=== PATIENT | male | born 1955 | race Caucasian/White ===

== ENCOUNTER → 2017-12-14 | Outpatient (CLI) | payer BC ==
[~2017-12-14] VITALS: Ht 188 cm; Wt 101.2 kg
[~2017-12-14] MED LIST: APIX5TAB PO; ASCO-262 PO; ASP325T PO; ATOR20TA66 PO; ATR20T PO; CALC-913 PO; CATHETER FLUSH 10 ML SYR IV SCH; CINN500C2 PO; DILT120C53 PO; DILT240C54 PO; DOFE500C PO; LEVO50TA6 PO; LISI20TA2 PO; LISI40TA PO; LVT.05T PO; MELO7.5T PO; METO-272 PO; METO50TA15 PO; MULT-35 PO; OMEP20CA12 PO; OMEP20CA6 PO; OMG1KC PO; SAW450CA7 PO; VITA1CAP PO; VITIAMS
[2017-12-14 09:22] VITALS: BP 134/99
[2017-12-14 09:30] VITALS: BP 198/98
--- NOTE | 2017-12-18 13:12 | STRESS TEST ---
DATE OF SERVICE: 12/14/2017 RESTING AND POST EXERCISE TECHNETIUM-99M TETROFOSMIN SPECT CT IMAGING ORDERING PHYSICIAN: Karolyn Felix APRN OTHER PHYSICIAN: Dr. Miranda, Dr. Mai. CLINICAL DIAGNOSIS: Chest discomfort, paroxysmal atrial fibrillation. Baseline images were carried out after injection of 10.49 mCi of technetium-99m Tetrofosmin. Subsequently, exercise was carried out on a treadmill. Baseline rhythm was atrial fibrillation/flutter. Heart rate was controlled at baseline. With exercise, heart rate ryley. Blood pressure response was normal to somewhat hypertensive. Test was stopped on account of shortness of breath and fatigue. After he had attained more than 85% of maximum predicted heart rate, 29.5 mCi of technetium-99m Tetrofosmin were injected and the exercise was continued for another minute. Isolated premature ventricular contractions were seen in the recovery phase. There did not appear to be significant ST segment depression. The patient attained 101% of maximum predicted heart rate and 7.7 METS of workload. Review of images at rest and following stress does not indicate any significant perfusion defects consistent with significant myocardial ischemia or infarction. Gated images show normal global left ventricular systolic function with normal regional wall motion. Left ventricular ejection fraction is calculated to be 56%. Left ventricular end-diastolic volume 84 mL. TID is absent (0.94). He exercised for a total of 6 minutes and 20 seconds in the Zac protocol. CONCLUSIONS: 1. No evidence of significant myocardial ischemia or infarction on this study. 2. Normal global left ventricular systolic function and normal regional wall motion and a calculated ejection fraction of 56%. 3. Atrial flutter/fibrillation throughout the study. 4. Low exercise capacity. Job ID: [id number] DocumentID: [id number] Dictated Date: 12/18/2017 10:59:50 Cleaning Attendant Date: 12/18/2017 13:11:42 Dictated By: KLARISSA MAI MD, MA, FACP, FACC, MTDD
== END ==
LOC: CARD 06:59
PROVIDERS: ATTEND Nurse Practitioner Family
DX: R07.89 Other chest pain (principal); I48.0 Paroxysmal atrial fibrillation; I10 Essential (primary) hypertension
CPT/HCPCS: 78452; 93017

== ENCOUNTER 2018-01-08 08:00 | Day surgery (SDC) | payer BC ==
[~2018-01-08] VITALS: Ht 188 cm; Wt 101.2 kg
[2018-01-08] VITALS (10 sets, daily range): BP systolic 111–131; BP diastolic 79–99
[~2018-01-08 08:00] MED LIST changes: -CATHETER FLUSH 10 ML SYR IV SCH
[2018-01-08] MEDS ORDERED: LIDOCAINE 1% INJ 20 ML 20 ML VIAL ONE (08:44)
[2018-01-08] MEDS ORDERED: HEParin (CATH LAB) 2,000 ML IV ONE (08:45)
[2018-01-08] MEDS ORDERED: NS IV 1000 ML 1,000 ML ONE (08:45)
[2018-01-08] MEDS ORDERED: NS IV 1000 ML 1,000 ML IV SCH ×2 (08:55→13:13)
[2018-01-08 09:16] LABS: HEMOGLOBIN 14.9 G/DL (13.3-17.7); MEAN PLATELET VOLUME 10.7 FL (7.4-10.4); RED BLOOD COUNT 5.28 10^6/uL (4.35-5.85); RED CELL DISTRIBUTION WIDTH 14.8 % (10.0-14.5)
[2018-01-08 09:28] LABS: INR 1.1 (0.8-1.4); PROTHROMBIN TIME PATIENT 14.2 SEC (12.2-14.7)
[2018-01-08 09:36] LABS: ALANINE AMINOTRANSFERASE 45 U/L (0-55); ALBUMIN 4.5 GM/DL (3.2-4.5); ALKALINE PHOSPHATASE 88 U/L (40-136); BILIRUBIN,TOTAL 0.6 MG/DL (0.1-1.0); BUN/CREATININE RATIO 15; CALCIUM 9.6 MG/DL (8.5-10.1); CARBON DIOXIDE 22 MMOL/L (21-32); CHLORIDE 110 MMOL/L (98-107); CHOLESTEROL 132 MG/DL (< 200); CREATININE SERUM 0.89 MG/DL (0.60-1.30); GFR ESTIMATED > 60; GLUCOSE 102 MG/DL (70-105); HDL CHOLESTEROL 44 MG/DL (40-60); POTASSIUM 4.1 MMOL/L (3.6-5.0); SODIUM 141 MMOL/L (135-145); TOTAL PROTEIN 7.1 GM/DL (6.4-8.2); TRIGLYCERIDES 68 MG/DL (<150); VLDL CHOLESTEROL 14 MG/DL (5-40)
[2018-01-08] MEDS ORDERED: LEVO50TA6 PO (09:36)
[2018-01-08] MEDS ORDERED: DILT120C53 PO (09:37)
[2018-01-08] MEDS ORDERED: ADAL40KI SQ (09:39)
[2018-01-08] MEDS ORDERED: CINN500C2 PO (09:40)
[2018-01-08] MEDS ORDERED: fentaNYL INJECTION 100 MCG/2 ML AMP ONE (10:28)
[2018-01-08] MEDS ORDERED: MIDAZOLAM 5 MG/5 ML (VERSED) VIAL ONE (10:28)
[2018-01-08] MEDS ORDERED: diphenhydrAMINE 50 MG/ML INJ (BENADRYL) ONE (10:28)
--- NOTE | 2018-01-08 11:43 | CARDIAC CATHETERIZATION ---
DATE OF SERVICE: 01/08/2018 CARDIAC CATHETERIZATON REPORT The patient is a 62-year-old man with chest discomfort. He has multiple coronary artery disease risk factors and chronic atrial fibrillation. Although, he recently had a myocardial perfusion imaging study that did not indicate significant ischemia, he has lately been describing symptoms that are suggestive of crescendo angina. He notes chest discomfort with small amount of exertion that resolved within a few minutes of rest and are frequent, present on a daily basis. Because of this, cardiac catheterization was carried out to evaluate for obstructive coronary artery disease as the basis of his symptoms of crescendo angina. DESCRIPTION OF PROCEDURE: He was brought to the cardiac catheterization laboratory in a fasting state. Right groin was prepared and draped in usual sterile fashion. Lidocaine 1% with local anesthesia. Modified Seldinger technique was used to advance a 5-Malawian sheath in the right femoral artery. Angiography of the right femoral artery was carried out through the sheath. A 5-Malawian JL4 catheter for left coronary angiography. A 5-Malawian JR4 catheter for right coronary angiography, 5-Malawian pigtail catheter was left heart catheterization, left ventricular angiography. At the end of the procedure, Mynx was used to achieve hemostasis following sheath removal. He tolerated the procedure well. HEMODYNAMICS: Left ventricular end-diastolic pressure following coronary angiography was 13 mmHg. There was no significant pressure gradient on pullback across the aortic valve. Ascending aortic pressure was 138/88 with a mean 107 mmHg. LEFT VENTRICULAR ANGIOGRAPHY: Left ventricular angiography was carried out in the right anterior oblique projection. Global left ventricular systolic function is normal. Left ventricular ejection fraction estimated to be 55% to 60%. There does not appear to be significant mitral regurgitation. CORONARY ANGIOGRAPHY: Left main coronary artery, left anterior descending artery, left circumflex artery, right coronary artery do not exhibit angiographically significant disease. Right coronary artery is dominant. CONCLUSIONS: 1. No angiographically significant coronary artery disease. 2. Normal global left ventricular systolic function with ejection fraction of 55% to 60%. 3. Left ventricular end-diastolic pressure at the top limit of normal. 4. No significant mitral regurgitation. DISCUSSION AND RECOMMENDATIONS: Based on results of the study, chest discomfort does not appear to be of coronary origin. Continuing risk factor modification is advised. Outpatient followup is advised. Job ID: [id number] DocumentID: [id number] Dictated Date: 01/08/2018 11:12:55 Theater Technician Date: 01/08/2018 11:43:02 Dictated By: KLARISSA CARRILLO MD, MA, FACP, FACC,
[2018-01-08] MEDS ORDERED: PATIENT MAY USE OWN MEDS, ALL PO SCH (13:15)
--- OUTSIDE RECORDS SUMMARY | 2018-01-17 18:06 | XMS REPORT | Encounter Summary ---
Author Author [facility] Organization [facility] Address Unknown Phone Unavailable Care Team Providers Care Clinic Clerk Name Role Phone Hasmukh Alvarez MD 100 Mariela Mcgrath RN Unavailable Unavailable Jalen Phillip MD PCP Reason for Referral * Test Status Reason Specialty Diagnoses / Referred By Referred To Procedures Contact Contact No Auth Needed Cardiology Diagnoses Dendi, Cmp Card Echo/Pv PAF (paroxysmal MD Hasmukh [address] fibrillation) [place], [place] ([facility]) [place] [address] [address] [place], [place] Phone: hypertension [phone] Mixed Phone: hyperlipidemia [phone] P Fax: [place] [phone] 2-D + DOPPLER ECHOCARDIOGRAM NH ECHO TTHRC R-T 2D W/WOM-MODE COMPL SPEC&COLR D * Test Status Reason Specialty Diagnoses / Referred By Referred To Procedures Contact Contact No Auth Needed Cardiology Diagnoses Dendi, Cmp Card Echo/Pv PAF (paroxysmal MD Hasmukh [address] fibrillation) [place], [place] ([facility]) [place] [address] [address] [place], [place] Phone: hypertension [phone] Mixed Phone: hyperlipidemia [phone] P Fax: [place] [phone] 2-D + DOPPLER ECHOCARDIOGRAM NH ECHO TTHRC R-T 2D W/WOM-MODE COMPL SPEC&COLR D Reason for Visit * Test Status Reason Specialty Diagnoses / Referred By Referred To Procedures Contact Contact No Auth Needed Cardiology Diagnoses Dendi, Cmp Card Echo/Pv PAF (paroxysmal MD Hasmukh [id number] fibrillation) [address] [place], [place] ([facility]) [place] [address] [address] [address] [place], [place] Phone: hypertension [phone] Mixed Phone: hyperlipidemia [phone] P Fax: rocedures [phone] 2-D + DOPPLER ECHOCARDIOGRAM NH ECHO TTHRC R-T 2D W/WOM-MODE COMPL SPEC&COLR D Encounter Details Date Type Department Care Team Description 10/24/2017 [facility] Cardiology Hasmukh Alvarez MD Encounter [id number] [facility] [address] [place] [address] [place] [address] [place], [place] [id number] Social History Tobacco Use Types Packs/Day Years Used Date Never Smoker Smokeless Tobacco: Former Snuff, Chew Quit: User 07/07/2008 Alcohol Use Drinks/Week oz/Week Comments No none since 01/2015 Sex Assigned at Date Recorded Not on file as of this encounter Last Filed Vital Signs Vital Sign Reading Time Taken Blood Pressure 137/86 10/24/2017 2:25 PM CDT Pulse - - Temperature - - Respiratory Rate - - Oxygen Saturation - - Inhaled Oxygen - - Concentration Weight 98.7 kg (217 lb 9.6 oz) 10/24/2017 2:25 PM CDT Height 188 cm (6' 2") 10/24/2017 2:25 PM CDT Body Mass Index 27.94 10/24/2017 2:25 PM CDT in this encounter Medications at Time of Discharge Medication Sig. Disp. Refills Start Date End Date adalimumab(+) (HUMIRA) 40 Inject 40 mg under the mg/0.8 mL injection skin every 14 days. apixaban (ELIQUIS) 5 mg Take 5 mg by mouth twice tab tablet daily. ascorbic acid (VITAMIN C) Take 2,000 mg by mouth 500 mg tablet daily. atorvastatin (LIPITOR) 20 Take 20 mg by mouth at mg tablet bedtime daily. CALCIUM CARBONATE/VITAMIN Take 1 Tab by mouth D3 (CALCIUM 600 + D PO) Daily. CARTIA XT 120 mg capsule TAKE ONE CAPSULE BY MOUTH 30 capsule 7 2017 ONCE DAILY Cinnamon Bark (CINNAMON) Take 1 Cap by mouth Twice 500 mg Cap Daily. levothyroxine (SYNTHROID) Take 50 mcg by mouth at 50 mcg tablet bedtime daily. lisinopril (PRINIVIL, Take 40 mg by mouth at ZESTRIL) 40 mg tablet bedtime daily. multivitamin (THERAGRAN) Take 1 Tab by mouth per tablet Daily. Hampton-3 Fatty Take 1 Cap by mouth Acids-Vitamin E (FISH Daily. OIL) 1,[address],+, Take 20 mg by mouth (PRILOSEC) 20 mg capsule Daily. SAW PALMETTO PO Take 1 Cap by mouth Daily. vitamins, B complex tab Take 1 Tab by mouth daily. metoprolol tartrate TAKE ONE TABLET BY MOUTH 60 Tab 11 11/02/2016 (LOPRESSOR) 50 mg tablet TWICE A DAY as of this encounter Progress Notes * Hasmukh Alvarez MD - 10/28/2017 10:06 PM CDT Normal result. Please let the patient know the good news if not already done. Copy to Primary research animal attendant Dr Mai. in this encounter Plan of Treatment Not on fileas of this encounter Results * 2-D + DOPPLER ECHOCARDIOGRAM (10/24/2017 2:25 PM) Component Value Ref Range IVS 1.03 0.6 - 1.0 cm LVIDD 4.74 4.2 - 5.8 cm LVIDS 2.86 2.5 - 4.0 cm PW 1.00 0.6 - 1.0 cm TDI e' 0.13 m/s Right Ventricular Mid 3.50 1.9 - 3.5 cm Diameter LA size 4.83 3.0 - 4.0 cm LA volume 53.74 18 - 58 mL Right Atrial Area 13.61 18 - 32 cm2 Right Atrial Major 4.92 2.1 - 2.7 cm Dimension AV peak velocity 1.05 m/s MV Peak A Lion 0.68 m/s MV Peak E Loin PW 1.11 m/s Right Ventricular Basal 4.29 2.5 - 4.1 cm Diameter Right Heart Systolic 2.03 >1.7 cm Mmode TAPSE Sinus 3.37 3.1 - 3.7 cm BSA 2.27 m2 FS 39.66 28 - 44 % EF 67.42 % Left Atrium Index 23.67 16 - 34 E/A ratio 1.63 E/E' ratio 8.54 Referring Provider Jalen Phillip LV mass 170.16 96 - 200 g RWT 0.42 <=0.42 Cardiology Ultrasound Siemens [id number] Machine Left Ventricle Mass Index 74.96 50 - 102 g/m2 TV rest pulmonary artery n/a mmHg pressure Right Heart Systolic TDI 0.296 m/s S' ECHO EF 60 % Specimen Performing Laboratory OTHER OUTSIDE LAB Narrative Rest Echo: Overall left ventricular systolic function is normal. EF~ 60% No regional wall motion abnormalities identified Valves appear structurally normal without signficant stenosis or regurgitation No significant pericardial effusion Normal chamber dimensions Normal LV wall thickness Normal diastolic function Normal aortic root dimensions Normal global strain pattern in this encounter Visit Diagnoses Diagnosis PAF (paroxysmal atrial fibrillation) (HCC) Atrial fibrillation Essential hypertension Unspecified essential hypertension Mixed hyperlipidemia
--- OUTSIDE RECORDS SUMMARY | 2018-01-17 18:06 | XMS REPORT | Encounter Summary ---
Author Author [facility] Organization [facility] Address Unknown Phone Unavailable Care Team Providers Care Records Supervisor Name Role Phone Hasmukh Alvarez MD 100 Mariela Mcgrath RN Unavailable Unavailable Jalen Phillip MD PCP Reason for Visit * Reason Comments Medication Refill metoprolol tartrate Encounter Details Date Type Department Care Team Description 11/26/2017 Refill [facility] Cardiology Hasmukh Alvarez MD Medication Refill [address] (metoprolol tartrate) [place] [address] [place] [address] [place], [place] [id number] Social History Tobacco Use Types Packs/Day Years Used Date Never Smoker Smokeless Tobacco: Former Snuff, Chew Quit: User 07/07/2008 Alcohol Use Drinks/Week oz/Week Comments No none since 01/2015 Sex Assigned at Date Recorded Not on file as of this encounter Plan of Treatment Not on fileas of this encounter Visit Diagnoses Not on filein this encounter
--- OUTSIDE RECORDS SUMMARY | 2018-01-17 18:06 | XMS REPORT ---
Author SIMA Vivar [facility] e[employer] Address Unknown Phone Unavailable Care Team Providers Care Hunter Trapper Name Role Phone SIMA SUAREZ CP Unavailable Allergies, Adverse Reactions, Alerts Substance Reaction Event Type N.K.D.A. Info Not Available Non Drug Allergy Problems Problem Type Condition Code Onset Dates Condition Status Problem Hypothyroidism, unspecified type E03.9 Active Problem Gastroesophageal reflux disease without esophagitis K21.9 Active Problem Atrial fibrillation, unspecified type I48.91 Active Assessment Routine adult health maintenance Z00.00 Active Assessment Hypothyroidism, unspecified type E03.9 Active Medications Medication Code System Code Instructions Start Date End Date Status Dosage Metoprolol Succinate ER [facility] [address]-23 50 MG Orally Once a day 1 tablet Atorvastatin Calcium [facility] [address]-91 20 MG Orally Once a day 1 tablet Calcium [facility] 427[address] 600 MG Orally Twice a day 1 tablet with meals Omeprazole [facility] [address]-12 20 MG Orally Once a day 2 capsules Clobetasol Prop & Cleanser ND 0 0.05 % Externally 2 times a day Mar 07, 2016 a pea sized amount Levothyroxine Sodium [facility] [address]-12 50 MCG Orally Once a day 1 tablet on an empty stomach in the morning Vitamin D-3 [facility] [address] 1000 UNIT Orally Once a day 1 capsule Clobeta Cream NDC 0 not defined Saw [place] [facility] [address] 450 MG Orally not defined Cinnamon [facility] [address] 500 MG Orally not defined Cartia XT [facility] [address]-71 120 MG Orally Once a day 1 capsule Lisinopril [facility] [address]-37 40 MG Orally Once a day 1 tablet [place] Oil [facility] [address]184 - Orally not defined Vitamin B Complex [facility] 94[address]65 - Orally not defined Dofetilide [facility] [address]-00 500 MCG Orally Twice a day 1 capsule Eliquis [facility] [address]-48 5 mg Orally Once a day 1 tablet Vitamin C [facility] [address]-36 1000 MG Orally Once a day 1 tablet Procedures Procedure Coding System Code Date Office Visit, Est Pt., Level 2 CPT-4 96939 Apr 25, 2016 Vital Signs Date/Time: Apr 25, 2016 Cardiac Monitoring Heart Rate 80 bpm Weight 230.2 lbs Height 74 in BMI 29.55 Index Blood Pressure Diastolic 82 mmHg Blood Pressure Systolic 132 mmHg Results No Known Results Summary Purpose eClinicalWorks Submission
--- OUTSIDE RECORDS SUMMARY | 2018-01-17 18:06 | XMS REPORT ---
Author Author SIMA SUAREZ Organization [facility] Address [address] [place] [address] Care Team Providers Care Centerless Grinder Name Role Phone SIMA SUAREZ Unavailable PROBLEMS Type Condition ICD9-CM Code [id number] Code Onset Dates Condition Status SNOMED Code Problem Hypothyroidism, unspecified type E03.9 Active 66317528 Problem Gastroesophageal reflux disease, esophagitis presence not specified K21.9 Active 202420892 Problem Accelerated essential hypertension I10 Active 80641454 Problem Gastroesophageal reflux disease without esophagitis K21.9 Active 219486450 Problem Atrial fibrillation, unspecified type I48.91 Active 92405788 Problem Psoriasis L40.9 Active 6392025 Problem Mixed hyperlipidemia E78.2 Active 817695047 ALLERGIES No Information SOCIAL HISTORY Never Assessed PLAN OF CARE VITAL SIGNS MEDICATIONS Medication Instructions Dosage Frequency Start Date End Date Duration Status Omeprazole 20 mg Orally Once a day 2 capsules 24h 30 days Active RESULTS No Results PROCEDURES No Known procedures IMMUNIZATIONS No Known Immunizations MEDICAL (GENERAL) HISTORY Type Description Date Medical History HTN Medical History Hyperlipidemia Medical History hypothyroidism Medical History A-fib Surgical History ablation x3 for a-fib - unsure of dates. Done at [facility] Surgical History heart cath - clear Surgical History right knee 03/2017
--- OUTSIDE RECORDS SUMMARY | 2018-01-17 18:06 | XMS REPORT | Encounter Summary ---
Author Author [facility] Organization [facility] Address Unknown Phone Unavailable Care Team Providers Care Horticulture Supervisor Name Role Phone Hasmukh Alvarez MD [facility] Mariela Mcgrath RN Unavailable Unavailable Jalen Phillip MD PCP Reason for Visit * Reason Comments Results ECHO Encounter Details Date Type Department Care Team Description 10/31/2017 Telephone [facility] Cardiology Peggy Rivas Results ( ECHO) [address] [place] [address] Social History Tobacco Use Types Packs/Day Years Used Date Never Smoker Smokeless Tobacco: Former Snuff, Chew Quit: User 07/07/2008 Alcohol Use Drinks/Week oz/Week Comments No none since 01/2015 Sex Assigned at Date Recorded Not on file as of this encounter Miscellaneous Notes * Telephone Encounter - Peggy Rivas - 10/31/2017 3:49 PM CDT Calling patient with results of ECHO, Patient verbalized understanding. ----- Message from Adelaida Lynn RN sent at 10/29/2017 4:26 PM CDT ----- ----- Message ----- From: Hasmukh Alvarez MD Sent: 10/28/2017 10:06 PM To: Adelaida Lynn RN, Mac Nurse Ep Normal result. Please let the patient know the good news if not already done. Copy to Primary installation supervisor Dr Mai. in this encounter Plan of Treatment Not on fileas of this encounter Visit Diagnoses Not on filein this encounter
--- OUTSIDE RECORDS SUMMARY | 2018-01-17 18:06 | XMS REPORT ---
Author Author SIMA SUAREZ [facility] Address [address] [place] [address] Care Team Providers Care Speed Winder Name Role Phone SIMA SUAREZ Unavailable PROBLEMS Type Condition ICD9-CM Code [id number] Code Onset Dates Condition Status SNOMED Code Problem Hypothyroidism, unspecified type E03.9 Active 67551726 Problem Gastroesophageal reflux disease, esophagitis presence not specified K21.9 Active 657139156 Problem Accelerated essential hypertension I10 Active 15381008 Problem Gastroesophageal reflux disease without esophagitis K21.9 Active 680007789 Problem Atrial fibrillation, unspecified type I48.91 Active 83370572 Problem Psoriasis L40.9 Active 9697203 Problem Mixed hyperlipidemia E78.2 Active 379954431 ALLERGIES No Known Allergies SOCIAL HISTORY Never Assessed PLAN OF CARE Activity Details Follow Up 6 Months Reason: VITAL SIGNS Height 74 in 2016-08-31 Weight 238 lbs 2016-08-31 Temperature 98.0 degrees Fahrenheit 2016-08-31 Heart Rate 64 bpm 2016-08-31 Respiratory Rate 20 2016-08-31 BMI 30.55 kg/m2 2016-08-31 Blood pressure systolic 136 mmHg 2016-08-31 Blood pressure diastolic 80 mmHg 2016-08-31 MEDICATIONS Medication Instructions Dosage Frequency Start Date End Date Duration Status Eliquis 5 mg Orally Once a day 1 tablet 24h Active Clobeta Cream Active [place] 450 MG Active Cinnamon 500 MG Active Calcium 600 MG Orally Twice a day 1 tablet with meals 12h Active Lisinopril 40 MG Orally Once a day 1 tablet 24h Active Clobetasol Prop & Cleanser 0.05 % Externally 2 times a day a pea sized amount 12h 30 Feb, 2016 Active Atorvastatin Calcium 20 mg Orally Once a day 1 tablet 24h Active Maxwell Oil - Active Vitamin D-3 1000 UNIT Orally Once a day 1 capsule 24h Active Vitamin B Complex - Active Metoprolol Succinate ER 50 MG Orally Once a day 1 tablet 24h Active Chlorpheniramine Maleate 4 MG Orally every 6 hrs 1 tablet as needed 6h Active Omeprazole 20 MG Orally Once a day 2 capsules 24h Active Cartia XT 120 MG Orally Once a day 1 capsule 24h Active Vitamin C 1000 MG Orally Once a day 1 tablet 24h Active Amoxicillin 500 mg Orally 3 times a day 1 capsule 8h Aug, 2 Sep, 2016 07 days Active Levothyroxine Sodium 50 MCG Orally Once a day 1 tablet on an empty stomach in the morning 24h 30 days Active RESULTS No Results PROCEDURES No Known procedures IMMUNIZATIONS No Known Immunizations MEDICAL (GENERAL) HISTORY Type Description Date Medical History HTN Medical History Hyperlipidemia Medical History hypothyroidism Medical History A-fib Surgical History ablation x3 for a-fib - unsure of dates. Done at Surgical History heart cath - clear
--- OUTSIDE RECORDS SUMMARY | 2018-01-17 18:06 | XMS REPORT ---
Author Author SIMA SUAREZ [facility] Address [address] [place] [address] Care Team Providers Care Network Firewall Engineer Name Role Phone SIMA SUAREZ Unavailable PROBLEMS Type Condition ICD9-CM Code ASM35-SF Code Onset Dates Condition Status SNOMED Code Problem Atrial fibrillation, unspecified type I48.91 Active 42759623 Problem Hypothyroidism, unspecified type E03.9 Active 01589913 Problem Gastroesophageal reflux disease without esophagitis K21.9 Active 044604748 ALLERGIES No Known Allergies SOCIAL HISTORY No smoking Hx information available PLAN OF CARE VITAL SIGNS MEDICATIONS No Known Medications RESULTS No Results PROCEDURES No Known procedures IMMUNIZATIONS No Known Immunizations
--- OUTSIDE RECORDS SUMMARY | 2018-01-17 18:06 | XMS REPORT | Encounter Summary ---
Author Author [facility] Organization [facility] Address Unknown Phone Unavailable Care Team Providers Care Plate Grainer Name Role Phone Hasmukh Alvarez MD [address] Mariela Mcgrath RN Unavailable Unavailable Jalen Phillip MD PCP Reason for Referral * Status Reason Specialty Diagnoses / Referred By Referred To Procedures Contact Contact New Request Procedures Kim, REQUEST FOR MD Hasmukh CARDIOLOGY [address] [place] [address] Reason for Visit * Reason Comments Atrial fibrillation Encounter Details Date Type Department Care Team Description 10/24/2017 Office Visit [facility] Cardiology Hasmukh Alvarez MD Atrial fibrillation [address] [place] [address] [place] [address] [phone] Social History Tobacco Use Types Packs/Day Years Used Date Never Smoker Smokeless Tobacco: Former Snuff, Chew Quit: User 07/07/2008 Alcohol Use Drinks/Week oz/Week Comments No none since 01/2015 Sex Assigned at Date Recorded Not on file as of this encounter Last Filed Vital Signs Vital Sign Reading Time Taken Blood Pressure 130/80 10/24/2017 2:17 PM CDT Pulse 67 10/24/2017 2:17 PM CDT Temperature - - Respiratory Rate - - Oxygen Saturation - - Inhaled Oxygen - - Concentration Weight 98.7 kg (217 lb 9.6 oz) 10/24/2017 2:17 PM CDT Height 188 cm (6' 2") 10/24/2017 2:17 PM CDT Body Mass Index 27.94 10/24/2017 2:17 PM CDT in this encounter Progress Notes * Hasmukh Alvarez MD - 10/24/2017 4:00 PM CDT Formatting of this note may be different from the original. Date of Service: 10/24/2017 Shaheed Be is a 62 y.o. male. HPI I had the pleasure of seeing Mr. Shaheed Be in our office today for cardiac electrophysiology followup visit regarding history of atrial fibrillation. As you recall, Dr. Mai and Dr. Mota, Mr. Be is an extremely delightful gentleman who works for [employer] and has a known history of longstanding hypertension, hyperlipidemia, hypothyroidism and highly symptomatic frequent paroxysmal atrial fibrillation episodes requiring anti-arrhythmic drug therapy, who had left atrial ablation in October 2009 and redo ablation in February 2010 due to residual atrial tachycardia and who has done well since then. He continued to have some short episodes of arrhythmia and therefore we started him on metoprolol in addition to Cardizem. He was also having uncontrolled hypertension simultaneously. Since we did that and saw him in January 2012, he has actually done significantly better. In fact, he has been taking his metoprolol 50 mg twice a day and with that dose his episodes are greatly limited. He has very short episodes lasting for a few minutes on average 4 or 5 episodes per month and they do not bother him. Since I last saw him about a year ago Mr. Be continues to do well. His atrial fibrillation has essentially been well controlled. He only feels a few seconds of palpitations at best. His blood pressure has been good. He has been avoiding salt and only noticed mild weight gain lately. Comes back because Dr Mai was cooncerned about his intermittent palpiations that last few seconds to few minutes. Last episode on 11/24. Since his BP meds increased 1 month ago he thinks its better. Sleep problems recently . He was recommended to get a sleep study. Cut alcohol use by half (Now approx 8 beers/week) and then none since 12/2014. Started on Tikosyn in local hospital on 03/24/2015 at 500mcg BID. First 45 days he had 10 episodes of irregular pulse and 5 episodes since then. HE can feel the skipping, racing or slowing down. However all the pulse rates were in 60's. BP is good. Diagnosed to have severe NEIL and started on CPAP 04/24/15. Sleeping better certainly. Wearing CPAP for <1 year. Does not feel significantly different. He has follow up with sleep specialist in few weeks. BP at home has been higher than usual. When I last saw Mr. Be in October 2015, we had an extensive discussion about his longstanding, highly symptomatic paroxysmal atrial fibrillation and with progressive increase in the frequency of episodes, he was interested in proceeding with a redo ablation since he is still very young and active physically and wanted to continue to have good quality of life. He had successful redo Afib ablation on 12/08/2015. Had 2 episodes in the first 3 months. 10/2016: Doing well overall. Only one episode on Mar 26 for 20 minutes and none since then. Sleep is good with CPAP machine. No edema. Off nicotine for 9 years. Does not exercise. Motivation issues. Starting to Bike. Recent Right Knee surgery for torn ligament went well. FOLLOW UP TODAY: Doing well. Asymptomatic Afib episodes. Once in a while feels palpitations lasts a minute. Intentionally lost 19 lbs. Over a period of 11 weeks. Home BP 120's. May be able to stop Dilt in the future. Assessment and Plan I reviewed his 12-lead EKG which shows sinus rhythm, rate 67 beats per minute, QRS 90, QTc 414 msec. In conclusion, Mr. Be's active issues today are: 1. Recurrent atrial fibrillation status post redo ablation on December 08, 2015. We found that some of his veins were quite active, and so an extensive ablation was performed to isolate these veins but did not take a lot of lesions. His esophagus was carefully monitored since it was right behind the right-sided veins, and low power was used. The right inferior pulmonary vein needed extra attention. Post ablation it could not be re-induced. I stopped his Tikosyn in in 04/2016 and he continues to do well and staying in sinus rhythm about 66% of the time.. 2. His blood pressure today is stable. I am not making any changes to his current regimen that includes lisinopril. His thyroid has been updated. 3. His CHADS VAsc is 1. Quit alcohol 1 year ago. 4. Continue Anticoagulation 5. Started Humira for soriatic arhritis. It helped quite a bit. 6. Echo today showed normal LV function. Follow up in 1 year. Thank you for letting us participate in the care of your patient. Please feel free to contact us with any questions or concerns. Vitals: 10/24/17 1417 BP: 130/80 Pulse: 67 Weight: 98.7 kg (217 lb 9.6 oz) Height: 1.88 m (6' 2") Body mass index is 27.94 kg/m. Past Medical History Patient Active Problem List Diagnosis Date Noted Atrial fibrillation (HCC) 12/08/2015 NEIL (obstructive sleep apnea) 06/16/2015 PAF (paroxysmal atrial fibrillation) ([facility]) 10/21/2009 Paroxysmal Atrial Fibrillation-- a. 09/02/09 - Diagnosed 3 years ago with progressively increasing frequency in the last 6 months. b. 09/13/09 - Cardiac CTA: No anomalous pulmonary veins. Normal appearing pulmonary veins. Left atrial appendage is free of thrombus. Mild biatrial enlargement with left atrial volume measuring 96.92 ml. Small PFO with a left to right shunting of contrast. Focal mixed plaque in the proximal LAD resulting in a stenosis of < 25% C. 10/21/2009- EPS and LA ablation (difficult CS access). Next day, recurrent persistent AF on flecainide not amenable to cardioversion. 2 weeks later spontaneous of conversion to sinus rhythm and staying in sinus rhythm since then. D. Recurrent runs of atrial tachycardia: 03/01/2010: EPS and ablation. Focal triggers near RSPV ablated. Tikosyn initialized. NSR since then. E. 02/20/2015 - EVM: Baseline sinus rhythm. Evidence of repeated episodes of coarse atrial fibrillation with controlled ventricular response. No symptoms reported. Cardiac Surveillance-- a. 05/10/09 - Echo Doppler: LV EF=40%, trivial to mild TR and MR and with a left atrial size of 3.9cm. b. 05/11/09 - Cardiac Catheterization: No evidence of significant coronary artery disease. LAD showed a 20% proximal disease. C. 02/25/2015 - ECHO: LVEF 60%. LA size=5.1 cm. Normal global LV systolic function. Trivial TVR. Moderate enlargments of LA. PAP WNL. ([facility]ia [facility]). 11/23/15- CCTA: Slight increase in volume of LA. Mildly enlarged. No KENYON thrombus. Moderate to severe interval narrowing of the right superior pulmonary vein and mild interval narrowing of the right inferior, left inferior, and left superior pulmonary veins without high-grade pulmonary vein stenosis. Early branching pattern of the right superior pulmonary vein is noted. Tiny patent foramen ovale again noted. 12/08/15 - Left Atrial Antral Radiofrequency Ablation Essential hypertension 10/21/2009 Hyperlipidemia 10/21/2009 a. 05/10/09 - LJ=386, TG=91, HDL=49, LDL=96, VLDL=18 b. Lipitor 20mg Daily, Fish Oil 1000mg Daily Hypothyroidism 10/21/2009 Review of Systems Constitution: Negative. HENT: Negative. Eyes: Negative. Cardiovascular: Positive for irregular heartbeat. Respiratory: Negative. Endocrine: Negative. Hematologic/Lymphatic: Negative. Skin: Negative. Musculoskeletal: Positive for arthritis. Gastrointestinal: Negative. Genitourinary: Negative. Neurological: Negative. Psychiatric/Behavioral: Negative. Allergic/Immunologic: Negative. Physical Exam Patient is a moderately well-built gentleman who is comfortable at rest, not in any distress. Sclerae anicteric. The oral mucosa is moist and pink. Neck is supple without any lymphadenopathy. Lungs are clear to auscultation bilaterally. Breath sounds are normal. Cardiac exam reveals normal S1, S2 with regular rate and rhythm. No murmurs, rubs or gallops noted. Abdomen: Soft, nontender, nondistended. Bowel sounds are present. Extremities: No cyanosis, clubbing or edema. Peripheral pulses are symmetric. Skin without any rash. . No gross motor or neuro deficits. Cardiovascular Studies Problems Addressed Today No diagnosis found. Assessment and Plan As above. Current Medications (including today's revisions) adalimumab(+) (HUMIRA) 40 mg/0.8 mL injection Inject 40 mg under the skin every 14 days. apixaban (ELIQUIS) 5 mg tab tablet Take 5 mg by mouth twice daily. ascorbic acid (VITAMIN C) 500 mg tablet Take 2,000 mg by mouth daily. atorvastatin (LIPITOR) 20 mg tablet Take 20 mg by mouth at bedtime daily. CALCIUM CARBONATE/VITAMIN D3 (CALCIUM 600 + D PO) Take 1 Tab by mouth Daily. CARTIA XT 120 mg capsule TAKE ONE CAPSULE BY MOUTH ONCE DAILY Cinnamon Bark (CINNAMON) 500 mg Cap Take 1 Cap by mouth Twice Daily. levothyroxine (SYNTHROID) 50 mcg tablet Take 50 mcg by mouth at bedtime daily. lisinopril (PRINIVIL, ZESTRIL) 40 mg tablet Take 40 mg by mouth at bedtime daily. metoprolol tartrate (LOPRESSOR) 50 mg tablet TAKE ONE TABLET BY MOUTH TWICE A DAY multivitamin (THERAGRAN) per tablet Take 1 Tab by mouth Daily. Lucas-3 Fatty Acids-Vitamin E (FISH OIL) 1,000 mg Cap Take 1 Cap by mouth Daily. omeprazole DR,+, (PRILOSEC) 20 mg capsule Take 20 mg by mouth Daily. SAW PALMETTO PO Take 1 Cap by mouth Daily. vitamins, B complex tab Take 1 Tab by mouth daily. in this encounter Miscellaneous Notes * Addendum Note - Adelaida Ulloa RN - 10/24/2017 4:00 PM CDT Addended by: ADELAIDA ULLOA on: 10/24/2017 03:08 PM Modules accepted: Orders in this encounter Plan of Treatment Name Priority Associated Diagnoses Order Schedule ECG 12-LEAD Routine Essential hypertension Ordered: 10/24/2017 PAF (paroxysmal atrial fibrillation) (HCC) Essential hypertension with goal blood pressure less than 130/85 as of this encounter Procedures Procedure Name Priority Date/Time Associated Diagnosis Comments ECG-SCAN 11/07/2017 Results for this 10:40 PM CDT procedure are in the results section. in this encounter Results * ECG-SCAN (11/07/2017 10:40 PM) Narrative Ordered by an unspecified provider. * ECG/QRS (10/24/2017 2:25 PM) Component Value Ref Range QRS DURATION 90 Specimen Performing Laboratory OTHER OUTSIDE LAB in this encounter Visit Diagnoses Diagnosis Essential hypertension - Primary Unspecified essential hypertension PAF (paroxysmal atrial fibrillation) (HCC) Atrial fibrillation Essential hypertension with goal blood pressure less than 130/85
--- OUTSIDE RECORDS SUMMARY | 2018-01-17 18:06 | XMS REPORT | Clinical Summary ---
Author Author [facility] Organization [facility] Address Unknown Phone Unavailable Care Team Providers Care Remnants Cutter Name Role Phone Hasmukh Alvarez MD [address] Mcgrath RN Unavailable Unavailable Jalen Phillip MD PCP Source Comments Some departments are not documenting in the electronic medical record. If you do not see the information that you expected, contact Release of Information in the Health Information Management department at [phone] for further assistance in locating additional records.[facility] Allergies No Known Allergies Current Medications Prescription Sig. Disp. Refills Start End Date Status Date atorvastatin (LIPITOR) 20 Take 20 mg by mouth at Active mg tablet bedtime daily. Saffell-3 Fatty Take 1 Cap by mouth Active Acids-Vitamin E (FISH Daily. OIL) 1,000 mg Cap levothyroxine (SYNTHROID) Take 50 mcg by mouth at Active 50 mcg tablet bedtime daily. omeprazole DR,+, Take 20 mg by mouth Active (PRILOSEC) 20 mg capsule Daily. multivitamin (THERAGRAN) Take 1 Tab by mouth Active per tablet Daily. ascorbic acid (VITAMIN C) Take 2,000 mg by mouth Active 500 mg tablet daily. SAW PALMETTO PO Take 1 Cap by mouth Active Daily. Cinnamon Bark (CINNAMON) Take 1 Cap by mouth Twice Active 500 mg Cap Daily. CALCIUM CARBONATE/VITAMIN Take 1 Tab by mouth Active D3 (CALCIUM 600 + D PO) Daily. vitamins, B complex tab Take 1 Tab by mouth Active daily. apixaban (ELIQUIS) 5 mg Take 5 mg by mouth twice Active tab tablet daily. lisinopril (PRINIVIL, Take 40 mg by mouth at Active ZESTRIL) 40 mg tablet bedtime daily. adalimumab(+) (HUMIRA) 40 Inject 40 mg under the Active mg/0.8 mL injection skin every 14 days. CARTIA XT 120 mg capsule TAKE ONE CAPSULE BY MOUTH 30 capsule 7 Active ONCE DAILY 18 metoprolol tartrate TAKE ONE TABLET BY MOUTH 60 tablet 11 11/27/19 Active (LOPRESSOR) 50 mg tablet TWICE A DAY 18 Active Problems Problem Noted Date Atrial fibrillation ([facility]) 12/08/2015 NEIL (obstructive sleep apnea) 06/16/2015 Last Assessment & Plan: Feels better. PAF (paroxysmal atrial fibrillation) ([facility]) 10/21/2009 Overview: Paroxysmal Atrial Fibrillation-- a. 09/02/09 - Diagnosed [...] Moderate enlargments of LA. PAP WNL. ([facility]ia [facility], [facility]). 11/23/15- CCTA: Slight increase [...] 12/08/15 - Left Atrial Antral Radiofrequency Ablation L ast Assessment & Plan: Well controlled with Tikosyn. Essential hypertension 10/21/2009 Last Assessment & Plan: Currently well controlled. No complaints. No change in medical regimen. Hyperlipidemia 10/21/2009 Overview: a. 05/10/09 - QR=659, TG=91, HDL=49, LDL=96, VLDL=18 b. Lipitor 20mg Daily, Fish Oil 1000mg Daily L ast Assessment & Plan: Controlled with meds. Hypothyroidism 10/21/2009 Last Assessment & Plan: Controlled with medications. Encounters Date Type Specialty Care Team Description 11/26/2017 Refill Cardiology Hasmukh Alvarez MD Medication Refill (metoprolol tartrate) 10/31/2017 Telephone Cardiology Peggy Rivas Results (ECHO) 10/24/2017 Office Visit Cardiology Hasmukh Alvarez MD Atrial fibrillation 10/24/2017 Hospital Cardiology Hasmukh Alvarez MD Encounter from Last 3 Months Family History Medical History Relation Name Comments Atrial Fibrillation Brother Heart Failure Father a-fib Atrial Fibrillation Mother a-fib Atrial Fibrillation Sister Relation Name Status Comments Brother Father a-fib a-fib Mother a-fib Alive afib Sister Social History Tobacco Use Types Packs/Day Years Used Date Never Smoker Smokeless Tobacco: Former Snuff, Chew Quit: User 07/07/2008 Alcohol Use Drinks/Week oz/Week Comments No none since 01/2015 Sex Assigned at Date Recorded Not on file Last Filed Vital Signs Vital Sign Reading Time Taken Blood Pressure 137/86 10/24/2017 2:25 PM CDT Pulse 67 10/24/2017 2:17 PM CDT Temperature 36.7 C (98 F) 12/09/2015 8:47 AM CDT Respiratory Rate - - Oxygen Saturation 98% 12/09/2015 8:47 AM CDT Inhaled Oxygen - - Concentration Weight 98.7 kg (217 lb 9.6 oz) 10/24/2017 2:25 PM CDT Height 188 cm (6' 2") 10/24/2017 2:25 PM CDT Body Mass Index 27.94 10/24/2017 2:25 PM CDT Plan of Treatment Health Maintenance Due Date Last Done Comments HEPATITIS C SCREENING 1955 PHYSICAL (COMPREHENSIVE) 1962 EXAM PERTUSSIS VACCINE 1966 HIV SCREENING 1970 TETANUS VACCINE 1972 COLORECTAL CANCER 2005 SCREENING SHINGLES RECOMBINANT 2005 VACCINE (1 of 2) INFLUENZA VACCINE 04/08/2018 Procedures Procedure Name Priority Date/Time Associated Diagnosis Comments ECG-SCAN 11/07/2017 Results for this 10:40 PM CDT procedure are in the results section. from Last 3 Months Results * ECG-SCAN (11/07/2017 10:40 PM) Narrative Ordered by an unspecified provider. * 2-D + DOPPLER ECHOCARDIOGRAM (10/24/2017 2:25 [...] A Lion 0.68 m/s MV Peak E Lion PW 1.11 m/s Right Ventricular Basal 4.29 [...] g RWT 0.42 <=0.42 Cardiology Ultrasound Siemens [id number] Machine Left Ventricle Mass Index 74.96 50 [...] aortic root dimensions Normal global strain pattern * ECG/QRS (10/24/2017 2:25 PM) Component Value Ref Range QRS DURATION 90 Specimen Performing Laboratory OTHER OUTSIDE LAB from Last 3 Months
--- OUTSIDE RECORDS SUMMARY | 2018-01-17 18:07 | XMS REPORT ---
Author Author SIMA SUAREZ [facility] Address [address] [place] [address] Care Team Providers Care Mold Swabber Name Role Phone SIMA SUAREZ Unavailable PROBLEMS Type Condition ICD9-CM Code [id number] Code Onset Dates Condition Status SNOMED Code Problem Hypothyroidism, unspecified type E03.9 Active 79024153 Problem Gastroesophageal reflux disease, esophagitis presence not specified K21.9 Active 408585923 Problem Accelerated essential hypertension I10 Active 85669044 Problem Gastroesophageal reflux disease without esophagitis K21.9 Active 266953183 Problem Atrial fibrillation, unspecified type I48.91 Active 73149564 Problem Psoriasis L40.9 Active 9280709 Problem Mixed hyperlipidemia E78.2 Active 801586677 ALLERGIES No Known Allergies SOCIAL HISTORY Never Assessed PLAN OF CARE Activity Details Follow Up 6 Months Reason: VITAL SIGNS Height 74 in 2016-09-15 Weight 237.3 lbs 2016-09-15 Temperature 98.3 degrees Fahrenheit 2016-09-15 Heart Rate 76 bpm 2016-09-15 Respiratory Rate 20 2016-09-15 BMI 30.46 kg/m2 2016-09-15 Blood pressure systolic 138 mmHg 2016-09-15 Blood pressure diastolic 86 mmHg 2016-09-15 MEDICATIONS Medication Instructions Dosage Frequency Start Date End Date Duration Status Cartia XT 120 MG Orally Once a day 1 capsule 24h Active Vitamin D-3 1000 UNIT Orally Once a day 1 capsule 24h Active Vitamin C 1000 MG Orally Once a day 1 tablet 24h Active Saw [place] 450 MG Active Omeprazole 20 MG Orally Once a day 2 capsules 24h Active Vitamin B Complex - Active Atorvastatin Calcium 20 mg Orally Once a day 1 tablet 24h Active Cinnamon 500 MG Active Clobeta Cream Active Clobetasol Prop & Cleanser 0.05 % Externally 2 times a day a pea sized amount 12h 30 Feb, 2016 Active Levothyroxine Sodium 50 MCG Orally Once a day 1 tablet on an empty stomach in the morning 24h 30 days Active [place] Oil - Active Metoprolol Succinate ER 50 MG Orally Once a day 1 tablet 24h Active Calcium 600 MG Orally Twice a day 1 tablet with meals 12h Active Eliquis 5 mg Orally Once a day 1 tablet 24h Active Lisinopril 40 mg Orally Once a day 1 tablet 24h 30 days Active RESULTS No Results [...]
--- OUTSIDE RECORDS SUMMARY | 2018-01-17 18:07 | XMS REPORT ---
Author Author SIMA SUAREZ [facility] Address [address] [place] [address] Care Team Providers Care State Attorney Name Role Phone SIMA SUAREZ Unavailable PROBLEMS Type Condition ICD9-CM Code [id number] Code Onset Dates Condition Status SNOMED Code Problem Gastroesophageal reflux disease without esophagitis K21.9 Active 382901313 Problem Gastroesophageal reflux disease, esophagitis presence not specified K21.9 Active 548015221 Problem Accelerated essential hypertension I10 Active 64620243 Problem Atrial fibrillation, unspecified type I48.91 Active 63661224 Problem Hypothyroidism, unspecified type E03.9 Active 31678530 Problem Psoriasis L40.9 Active 8798415 Problem Mixed hyperlipidemia E78.2 Active 168759155 ALLERGIES Unknown Allergies SOCIAL HISTORY No smoking Hx information available PLAN OF CARE VITAL SIGNS MEDICATIONS Medication Instructions Dosage Frequency Start Date End Date Duration Status Levothyroxine Sodium 50 MCG Orally Once a day 1 tablet on an empty stomach in the morning 24h 30 days Active RESULTS No Results PROCEDURES No Known procedures IMMUNIZATIONS No Known Immunizations
--- OUTSIDE RECORDS SUMMARY | 2018-01-17 18:07 | XMS REPORT ---
Author Author SIMA SUAREZ [facility] Address [address] [place] [address] Care Team Providers Care Upholsterer Inside Name Role Phone SIMA SUAREZ Unavailable PROBLEMS Type Condition ICD9-CM Code [id number] Code Onset Dates Condition Status SNOMED Code Problem Hypothyroidism, unspecified type E03.9 Active 40229281 Problem Gastroesophageal reflux disease, esophagitis presence not specified K21.9 Active 015286490 Problem Accelerated essential hypertension I10 Active 17685097 Problem Gastroesophageal reflux disease without esophagitis K21.9 Active 102316769 Problem Atrial fibrillation, unspecified type I48.91 Active 74756625 Problem Psoriasis L40.9 Active 5304486 Problem Mixed hyperlipidemia E78.2 Active 868154907 ALLERGIES Unknown Allergies SOCIAL HISTORY No smoking Hx information available PLAN OF CARE VITAL SIGNS MEDICATIONS Medication Instructions Dosage Frequency Start Date End Date Duration Status Atorvastatin Calcium 20 mg Orally Once a day 1 tablet 24h Active RESULTS No Results PROCEDURES No Known procedures IMMUNIZATIONS No Known Immunizations
--- OUTSIDE RECORDS SUMMARY | 2018-01-17 18:07 | XMS REPORT ---
Author Author SIMA SUAREZ Organization [facility] Address [address] [place] [address] Care Team Providers Care Gut Dropper Name Role Phone SIMA SUAREZ Unavailable PROBLEMS Type Condition ICD9-CM Code [id number] Code Onset Dates Condition Status SNOMED Code Problem Hypothyroidism, unspecified type E03.9 Active 04070190 Problem Mixed hyperlipidemia E78.2 Active 963135500 Problem Atrial fibrillation, unspecified type I48.91 Active 23122617 Problem Gastroesophageal reflux disease without esophagitis K21.9 Active 912609114 Problem Other chronic pain G89.29 Active 68093152 Problem Pain in right knee M25.561 Active 23972181 Problem Accelerated essential hypertension I10 Active 12438253 Problem Psoriasis L40.9 Active 3770188 Problem Wellness examination Z00.00 Active 513159825 Problem Gastroesophageal reflux disease, esophagitis presence not specified K21.9 Active 389398537 ALLERGIES No Known Allergies ENCOUNTERS Encounter Location Date Diagnosis [place] [id number] [place] [phone] Apr, Wellness examination Z00.00 [facility] [id number] [place] [address] 99147- 3080 Apr, Accelerated essential hypertension I10 ; Hypothyroidism, unspecified type E03.9 ; Mixed hyperlipidemia E78.2 and Routine adult health maintenance Z00.00 [facility] [id number] [place] [address] 16676- 1271 Oct, Gastroesophageal reflux disease, esophagitis presence not specified K21.9 [facility] [id number] [place] [address] 41677- 6837 Sep, Gastroesophageal reflux disease without esophagitis K21.9 [facility] [address] [address]658 Sep, Hypothyroidism, unspecified type E03.9 [facility] [id number] [place] [address] 31158- 3857 Sep, Accelerated essential hypertension I10 [facility] [id number] [place] [address] 05461- 9524 Aug, Acute recurrent frontal sinusitis J01.11 and Psoriasis L40.9 [place] [id number] [place] [address] 30717- 2502 Jul, Mixed hyperlipidemia E78.2 [place] [id number] [place] [address] 57306- 7093 Jun, [place] [id number] [place] [address] 44755- 6555 Apr, Routine adult health maintenance Z00.00 and Hypothyroidism, unspecified type E03.9 [place] [id number] [place] [address] 18374- 0356 Mar, [place] [id number] [place] [address] 41442- 3851 Mar, [place] [id number] [place] [address] 94248- 3511 Feb, [place] [id number] [place] [address] 35580- 6340 Feb, Atrial fibrillation, unspecified type I48.91 ; Hypothyroidism, unspecified type E03.9 and Gastroesophageal reflux disease without esophagitis K21.9 IMMUNIZATIONS No Known Immunizations SOCIAL HISTORY Never Assessed REASON FOR VISIT Wellness exam--Jena Bowser RN PLAN OF CARE Activity Details Follow Up 1 Year Reason: VITAL SIGNS Height 74 in 2017-04-30 Weight 234 lbs 2017-04-30 Temperature 97.9 degrees Fahrenheit 2017-04-30 Heart Rate 70 bpm 2017-04-30 Respiratory Rate 18 2017-04-30 BMI 30.04 kg/m2 2017-04-30 Blood pressure systolic 132 mmHg 2017-04-30 Blood pressure diastolic 84 mmHg 2017-04-30 MEDICATIONS Medication Instructions Dosage Frequency Start Date End Date Duration Status Levothyroxine Sodium 50MCG Orally Once a day 1 tablet on an empty stomach in the morning 24h 30 Active Saw Sun[place] 450 MG Active Omeprazole 20 mg Orally Once a day 1 capsule 24h 30 days Active Atorvastatin Calcium 20MG Orally Once a day 1 tablet 24h 30 Active Cartia XT 120 MG Orally Once a day 1 capsule 24h Active Vitamin B Complex - Active [place] Oil - Active Humira Pen 40 MG/0.8ML Subcutaneous once ever 2 weekly 0.8 ml Active Cinnamon 500 MG Active Eliquis 5 mg Orally twice a day 1 tablet 12h Active Vitamin D-3 1000 UNIT Orally Once a day 1 capsule 24h Active Lisinopril 40 mg Orally Once a day 1 tablet 24h 30 days Active Metoprolol Tartrate 50 MG Orally 1 and 3 1 tablet with food Active Calcium 600 MG Orally Twice a day 1 tablet with meals 12h Active Vitamin C 1000 MG Orally Once a day 1 tablet 24h Active RESULTS No Results PROCEDURES No Known procedures INSTRUCTIONS MEDICATIONS ADMINISTERED No Known Medications MEDICAL (GENERAL) HISTORY Type Description Date Medical History HTN Medical History Hyperlipidemia Medical History hypothyroidism Medical History A-fib Surgical History ablation x3 for a-fib - unsure of dates. Done at Surgical History heart cath - clear Surgical History right knee 03/2017
--- OUTSIDE RECORDS SUMMARY | 2018-01-17 18:07 | XMS REPORT ---
Author Author SIMA SUAREZ Organization [facility] Address [address] [place] [address] Care Team Providers Care Tooth Clerk Name Role Phone SIMA SUAREZ Unavailable PROBLEMS Type Condition ICD9-CM Code PTH84-IS Code Onset Dates Condition Status SNOMED Code Problem Hypothyroidism, unspecified type E03.9 Active 19262658 Problem Gastroesophageal reflux disease, esophagitis presence not specified K21.9 Active 080868044 Problem Accelerated essential hypertension I10 Active 38203032 Problem Gastroesophageal reflux disease without esophagitis K21.9 Active 317594465 Problem Atrial fibrillation, unspecified type I48.91 Active 33218223 Problem Psoriasis L40.9 Active 8790160 Problem Mixed hyperlipidemia E78.2 Active 779999113 ALLERGIES No Information SOCIAL HISTORY Never Assessed PLAN OF CARE VITAL SIGNS MEDICATIONS Medication Instructions Dosage Frequency Start Date End Date Duration Status Lisinopril 40 mg Orally Once a day [...]
--- OUTSIDE RECORDS SUMMARY | 2018-01-17 18:07 | XMS REPORT ---
Author Author SIMA SUAREZ [facility] [employer] Address Unknown Phone Unavailable Care Team Providers Care Beveller Operator Name Role Phone SIMA SUAREZ CP Unavailable Allergies No Known Allergies Problems Problem Type Condition Code Onset Dates Condition Status Problem Hypothyroidism, unspecified type E03.9 Active Problem Gastroesophageal reflux disease without esophagitis K21.9 Active Problem Atrial fibrillation, unspecified type I48.91 Active Medications Medication Code System Code Instructions Start Date End Date Status Dosage Temovate NDC [address]-37 0.05 % Externally Twice a day Mar 07, 2016 Mar 17, 2016 1 application to affected area Clobetasol Prop & Cleanser NDC 0 0.05 % Externally 2 times a day Mar 07, 2016 a pea sized amount Results No Known Results Summary Purpose [employer] Submission
--- OUTSIDE RECORDS SUMMARY | 2018-01-17 18:07 | XMS REPORT ---
Author Author SIMA SUAREZ Organization [facility] Address [address] [place] [address] Care Team Providers Care Sizing Sprayer Name Role Phone SIMA SUAREZ Unavailable PROBLEMS Type Condition ICD9-CM Code AMW92-XH Code Onset Dates Condition Status SNOMED Code Problem Hypothyroidism, unspecified type E03.9 Active 09971650 Problem Mixed hyperlipidemia E78.2 Active 120829612 Problem Atrial fibrillation, unspecified type I48.91 Active 32593561 Problem Gastroesophageal reflux disease without esophagitis K21.9 Active 575863839 Problem Other chronic pain G89.29 Active 39767901 Problem Pain in right knee M25.561 Active 09122510 Problem Accelerated essential hypertension I10 Active 40967369 Problem Psoriasis L40.9 Active 6345146 Problem Wellness examination Z00.00 Active 583448102 Problem Gastroesophageal reflux disease, esophagitis presence not specified K21.9 Active 185787781 ALLERGIES No Known Allergies ENCOUNTERS Encounter Location Date Diagnosis [place] [id number] [place] [address] 34778- 1163 Apr, Wellness examination Z00.00 [facility] [id number] [place] [address] 57379- 8298 Apr, Accelerated essential hypertension I10 ; Hypothyroidism, unspecified type E03.9 ; Mixed hyperlipidemia E78.2 and Routine adult health maintenance Z00.00 [facility] [id number] [place] [address] 03109- 3671 Oct, Gastroesophageal reflux disease, esophagitis presence not specified K21.9 [facility] [id number] [place] [address] 32056- 7886 Sep, Gastroesophageal reflux disease without esophagitis K21.9 [facility] [address] 92497- 4939 Sep, Hypothyroidism, unspecified type E03.9 [facility] [id number] [place] [address] 39614- 7332 Sep, Accelerated essential hypertension I10 [place] [id number] [place] [address] 82617- 9264 Aug, Acute recurrent frontal sinusitis J01.11 and Psoriasis L40.9 [place] [address] 35638- 4723 Jul, Mixed hyperlipidemia E78.2 [place] [id number] [place] [address] 16016- 0324 Jun, [place] [id number] [place] [address] 58393- 9212 Apr, Routine adult health maintenance Z00.00 and Hypothyroidism, unspecified type E03.9 [place] [address] 43915- 6227 Mar, [place] [id number] [place] [address] 76508- 8577 Mar, [place] [id number] [place] [address] 31484- 3735 Feb, [place] [id number] [place] [address] 11411- 8822 Feb, Atrial fibrillation, unspecified type I48.91 ; Hypothyroidism, unspecified type E03.9 and Gastroesophageal reflux disease without esophagitis K21.9 IMMUNIZATIONS No Known Immunizations SOCIAL HISTORY Never Assessed REASON FOR VISIT PT says he is here for full labs- Dorian GRIFFITHS PLAN OF CARE Activity Details Follow Up 2 Weeks Reason: VITAL SIGNS Height 74 in 2017-04-09 Weight 238.8 lbs 2017-04-09 Temperature 98.0 degrees Fahrenheit 2017-04-09 Heart Rate 72 bpm 2017-04-09 Respiratory Rate 20 2017-04-09 BMI 30.66 kg/m2 2017-04-09 Blood pressure systolic 124 mmHg 2017-04-09 Blood pressure diastolic 82 mmHg 2017-04-09 MEDICATIONS Medication Instructions Dosage Frequency Start Date End Date Duration Status Cinnamon 500 MG Active Calcium 600 MG Orally Twice a day 1 tablet with meals 12h Active Eliquis 5 mg Orally Once a day 1 tablet 24h Active Saw [place] 450 MG Active [place] Oil - Active Lisinopril 40 mg Orally Once a day 1 tablet 24h 30 days Active Omeprazole 20 mg Orally Once a day 1 capsule 24h 30 days Active Cartia XT 120 MG Orally Once a day 1 capsule 24h Active Vitamin C 1000 MG Orally Once a day 1 tablet 24h Active Vitamin B Complex - Active Atorvastatin Calcium 20MG Orally Once a day 1 tablet 24h 30 Active Metoprolol Succinate ER 50 MG Orally Once a day 1 tablet 24h Active Vitamin D-3 1000 UNIT Orally Once a day 1 capsule 24h Active Levothyroxine Sodium 50MCG Orally Once a day 1 tablet on an empty stomach in the morning 24h 30 Active RESULTS No Results PROCEDURES Procedure Date Ordered Result Body Site COMPREHEN METABOLIC PANEL Apr 09, 2017 ASSAY THYROID STIM HORMONE Apr 09, 2017 ASSAY OF PSA, TOTAL Apr 09, 2017 LIPID PANEL Apr 09, 2017 VENIPUNCT, ROUTINE* Apr 09, 2017 INSTRUCTIONS MEDICATIONS ADMINISTERED No Known Medications MEDICAL (GENERAL) HISTORY Type Description Date Medical History HTN Medical History Hyperlipidemia Medical History hypothyroidism Medical History A-fib Surgical History ablation x3 for a-fib - unsure of dates. Done at Surgical History heart cath - clear Surgical History right knee 03/2017
--- OUTSIDE RECORDS SUMMARY | 2018-01-17 18:08 | XMS REPORT | Continuity of Care Document ---
Author Author [facility] Organization [facility] Address Unknown Phone Unavailable Allergies Active Description Code Type Severity Reaction Onset Reported/Identified Relationship to Patient Clinical Status Yes No Known Drug Allergies [id number] Drug Allergy Unknown N/A 10/16/2010 Medications There is no data. Problems Date Dx Coded Attending Type Code Diagnosis Diagnosed By 10/18/2010 Ot 244.9 10/18/2010 Ot 272.4 10/18/2010 Ot 401.9 10/18/2010 Ot 414.00 10/18/2010 Ot 427.31 10/18/2010 Ot 530.81 10/18/2010 Ot 733.6 10/18/2010 Ot 786.59 10/18/2010 Ot V58.66 10/18/2010 Ot V58.69 03/04/2012 Ot 244.9 03/04/2012 Ot 272.4 03/04/2012 Ot 401.9 03/04/2012 Ot 427.31 03/04/2012 Ot 530.81 03/04/2012 Ot 716.90 03/04/2012 Ot V58.66 03/04/2012 Ot V58.69 03/04/2012 Ot V76.51 10/07/2014 Ot 414.00 10/07/2014 Ot 228.04 10/07/2014 Ot V72.84 10/23/2014 VANE QUIROZ DO Ot 786.2 10/23/2014 VANE QUIROZ DO Ot 786.50 02/14/2015 CRISTINA MATA DO Ot 327.23 OBSTRUCTIVE SLEEP APNEA (ADULT) (PEDIATR 03/11/2015 CLAIR PRASAD [employer] TECHNICIAN Ot 427.31 03/26/2015 KLARISSA CARRILLO MD, FACC, FACP CCDS Ot 244.9 HYPOTHYROIDISM NOS 03/26/2015 KLARISSA CARRILLO MD, FACC, FACP CCDS Ot 272.4 HYPERLIPIDEMIA NEC/NOS 03/26/2015 KLARISSA CARRILLO MD, FACC, FACP CCDS Ot 401.9 HYPERTENSION NOS 03/26/2015 LORENA MD FACC, ALI FACP CCDS Ot 427.31 ATRIAL FIBRILLATION 03/26/2015 LORENA MOLINA FACC, ALI FACP CCDS Ot 427.32 ATRIAL FLUTTER 03/26/2015 LORENA AVERYC, ALI FACP CCDS Ot 696.0 PSORIATIC ARTHROPATHY 03/26/2015 LORENA AVERYC, ALI FACP CCDS Ot 780.57 UNSPECIFIED SLEEP APNEA 03/26/2015 LORENA AVERYC, ALI FACP CCDS Ot 790.29 OTHER ABNORMAL GLUCOSE 03/29/2015 Ot 414.00 03/29/2015 Ot 228.04 03/29/2015 Ot V72.84 03/29/2015 VANE QUIROZ DO Ot 786.2 03/29/2015 VANE QUIROZ DO Ot 786.50 03/29/2015 CLAIR PRASAD [employer] TECHNICIAN Ot 427.31 03/29/2015 CLAIR PRASAD [employer] TECHNICIAN Ot 427.31 04/01/2015 LORENA AVERYC, ALI FACP CCDS Ot 244.9 04/01/2015 LORENA AVERYC, ALI FACP CCDS Ot 272.4 04/01/2015 LORENA AVERYC, ALI FACP CCDS Ot 401.9 04/01/2015 LORENA AVERYC, ALI FACP CCDS Ot 427.31 04/01/2015 LORENA AVERYC, ALI FACP CCDS Ot 427.32 04/01/2015 LORENA AVERYC, ALI FACP CCDS Ot 696.0 04/01/2015 LORENA AVERYC, ALI FACP CCDS Ot 780.57 04/01/2015 LORENA AVERYC, ALI FACP CCDS Ot 790.29 04/01/2015 LORENA MOLINA FACC, ALI FACP CCDS Ot 244.9 04/01/2015 LORENA MOLINA FACC, ALI FACP CCDS Ot 272.4 04/01/2015 LORENA MOLINA FACC, ALI FACP CCDS Ot 401.9 04/01/2015 LORENA MOLINA FACC, ALI FACP CCDS Ot 427.31 04/01/2015 LORENA MOLINA FACC, ALI FACP CCDS Ot 427.32 04/01/2015 LORENA AVERYC, ALI FACP CCDS Ot 696.0 04/01/2015 LORENA AVERYC, ALI FACP CCDS Ot 780.57 04/01/2015 LORENA MOLINA FACC, KLARISSA FACP CCDS Ot 790.29 12/11/2017 Ot 414.00 CORON ATHEROSCLER NOS TYPE VESSEL, NATIV 12/11/2017 RICHIE READ, VANE Gama Ot 786.2 COUGH 12/11/2017 RICHIE READ, VANE A Ot 786.50 CHEST PAIN NOS 12/11/2017 HEMA PRASADHER Severo [employer] TECHNICIAN Ot 427.31 ATRIAL FIBRILLATION 12/11/2017 BAIMA CLAIR L [employer] TECHNICIAN Ot I48.91 UNSPECIFIED ATRIAL FIBRILLATION 12/26/2017 MARKOCLAIR GRIFFITHS L [employer] TECHNICIAN Ot I10 ESSENTIAL (PRIMARY) HYPERTENSION 12/26/2017 MARKOCLAIR GRIFFITHS L [employer] TECHNICIAN Ot I48.0 PAROXYSMAL ATRIAL FIBRILLATION 12/26/2017 MARKOCLAIR GRIFFITHS [employer] TECHNICIAN Ot R07.89 OTHER CHEST PAIN 01/08/2018 LORENA MOLINA FACC, KLARISSA FACP CCDS Ot E03.9 HYPOTHYROIDISM, UNSPECIFIED 01/08/2018 LORENA MOLINA FACC, KLARISSA FACP CCDS Ot E78.5 HYPERLIPIDEMIA, UNSPECIFIED 01/08/2018 LORENA MOLINA FACC, KLARISSA FACP CCDS Ot G47.33 OBSTRUCTIVE SLEEP APNEA (ADULT) (PEDIATR 01/08/2018 LORENA MOLINA FACC, ALI FACP CCDS Ot I10 ESSENTIAL (PRIMARY) HYPERTENSION 01/08/2018 LORENA MOLINA FACC, KLARISSA FACP CCDS Ot I48.0 PAROXYSMAL ATRIAL FIBRILLATION 01/08/2018 LORENA MOLINA FACC, KLARISSA FACP CCDS Ot L40.50 ARTHROPATHIC PSORIASIS, UNSPECIFIED 01/08/2018 LORENA MOLINA FACC, ALI FACP CCDS Ot R07.89 OTHER CHEST PAIN 01/08/2018 LORENA MOLINA FACC, ALI FACP CCDS Ot R73.9 HYPERGLYCEMIA, UNSPECIFIED 01/08/2018 LORENA MOLINA FACC, ALI FACP CCDS Ot Z79.01 HANDY WORKER (CURRENT) USE OF ANTICOAGULANT 01/08/2018 LORENA MOLINA FACC, KLARISSA FACP CCDS Ot Z79.899 OTHER ASSISTED (CURRENT) DRUG THERAPY 01/08/2018 LORENA MOLINA FACC, KLARISSA FACP CCDS Ot Z87.891 PERSONAL HISTORY OF NICOTINE DEPENDENCE 01/11/2018 LORENA MOLINA FACC, KLARISSA FACP CCDS Ot E03.9 HYPOTHYROIDISM, UNSPECIFIED 01/11/2018 LORENA AVREYC, ALI FACP CCDS Ot E78.5 HYPERLIPIDEMIA, UNSPECIFIED 01/11/2018 LORENA MOLINA FACC, ALI FACP CCDS Ot G47.33 OBSTRUCTIVE SLEEP APNEA (ADULT) (PEDIATR 01/11/2018 LORENA MOLINA FACC, ALI FACP CCDS Ot I10 ESSENTIAL (PRIMARY) HYPERTENSION 01/11/2018 LORENA MOLINA FACC, ALI FACP CCDS Ot I48.0 PAROXYSMAL ATRIAL FIBRILLATION 01/11/2018 LORENA MOLINA FACC, ALI FACP CCDS Ot L40.50 ARTHROPATHIC PSORIASIS, UNSPECIFIED 01/11/2018 LORENA MOLINA FACC, ALI FACP CCDS Ot R07.89 OTHER CHEST PAIN 01/11/2018 LORENA AVERYC, ALI FACP CCDS Ot R73.9 HYPERGLYCEMIA, UNSPECIFIED 01/11/2018 LORENA MOLINA FACC, ALI FACP CCDS Ot Z79.01 HANDY WORKER (CURRENT) USE OF ANTICOAGULANT 01/11/2018 LORENA MOLINA FACC, ALI FACP CCDS Ot Z79.899 OTHER HANDY WORKER (CURRENT) DRUG THERAPY 01/11/2018 LORENA AVERYC, ALI FACP CCDS Ot Z87.891 PERSONAL HISTORY OF NICOTINE DEPENDENCE 01/11/2018 LORENA AVERYC, ALI FACP CCDS Ot E03.9 HYPOTHYROIDISM, UNSPECIFIED 01/11/2018 LORENA AVERYC, ALI FACP CCDS Ot E78.5 HYPERLIPIDEMIA, UNSPECIFIED 01/11/2018 LORENA MOLINA FACC, ALI FACP CCDS Ot G47.33 OBSTRUCTIVE SLEEP APNEA (ADULT) (PEDIATR 01/11/2018 LORENA MOLINA FACC, ALI FACP CCDS Ot I10 ESSENTIAL (PRIMARY) HYPERTENSION 01/11/2018 LORENA MOLINA FACC, ALI FACP CCDS Ot I48.0 PAROXYSMAL ATRIAL FIBRILLATION 01/11/2018 LORENA MOLINA FACC, ALI FACP CCDS Ot L40.50 ARTHROPATHIC PSORIASIS, UNSPECIFIED 01/11/2018 LORENA MOLINA FACC, ALI FACP CCDS Ot R07.89 OTHER CHEST PAIN 01/11/2018 LORENA AVERYC, ALI FACP CCDS Ot R73.9 HYPERGLYCEMIA, UNSPECIFIED 01/11/2018 LORENA MOLINA FACC, ALI FACP CCDS Ot Z79.01 HANDY WORKER (CURRENT) USE OF ANTICOAGULANT 01/11/2018 LORENA AVERYC, ALI FACP CCDS Ot Z79.899 OTHER HANDY WORKER (CURRENT) DRUG THERAPY 01/11/2018 LORENA MOLINA FACC, ALI FACP CCDS Ot Z87.891 PERSONAL HISTORY OF NICOTINE DEPENDENCE 01/14/2018 LORENA AVERYC, ALI FACP CCDS Ot E03.9 HYPOTHYROIDISM, UNSPECIFIED 01/14/2018 LORENA AVERYC, ALI FACP CCDS Ot E78.5 HYPERLIPIDEMIA, UNSPECIFIED 01/14/2018 LORENA AVERYC, ALI FACP CCDS Ot G47.33 OBSTRUCTIVE SLEEP APNEA (ADULT) (PEDIATR 01/14/2018 LORENA MOLINA FACC, ALI FACP CCDS Ot I10 ESSENTIAL (PRIMARY) HYPERTENSION 01/14/2018 LORENA AVERYC, ALI FACP CCDS Ot I48.0 PAROXYSMAL ATRIAL FIBRILLATION 01/14/2018 LORENA AVERYC, ALI FACP CCDS Ot L40.50 ARTHROPATHIC PSORIASIS, UNSPECIFIED 01/14/2018 LORENA MOLINA FACC, ALI FACP CCDS Ot R07.89 OTHER CHEST PAIN 01/14/2018 LORENA MOLINA FACC, ALI FACP CCDS Ot R73.9 HYPERGLYCEMIA, UNSPECIFIED 01/14/2018 LORENA AVERYC, ALI FACP CCDS Ot Z79.01 HANDY WORKER (CURRENT) USE OF ANTICOAGULANT 01/14/2018 LORENA MOLINA FACC, ALI FACP CCDS Ot Z79.899 OTHER HANDY WORKER (CURRENT) DRUG THERAPY 01/14/2018 LORENA MOLINA FACC, ALI FACP CCDS Ot Z87.891 PERSONAL HISTORY OF NICOTINE DEPENDENCE 01/17/2018 LORENA MOLINA FACC, ALI FACP CCDS Ot E03.9 HYPOTHYROIDISM, UNSPECIFIED 01/17/2018 LORENA AVERYC, ALI FACP CCDS Ot E78.5 HYPERLIPIDEMIA, UNSPECIFIED 01/17/2018 LORENA MOLINA FACC, ALI FACP CCDS Ot G47.33 OBSTRUCTIVE SLEEP APNEA (ADULT) (PEDIATR 01/17/2018 LORENA AVERYC, ALI FACP CCDS Ot I10 ESSENTIAL (PRIMARY) HYPERTENSION 01/17/2018 LORENA AVERYC, ALI FACP CCDS Ot I48.0 PAROXYSMAL ATRIAL FIBRILLATION 01/17/2018 LORENA AVERYC, ALI FACP CCDS Ot L40.50 ARTHROPATHIC PSORIASIS, UNSPECIFIED 01/17/2018 LORENA MOLINA FACC, [facility] CCD[facility] Ot R07.89 OTHER CHEST PAIN 01/17/2018 LORENA MOLINA FACC, KLARISSA [facility] CCDS Ot R73.9 HYPERGLYCEMIA, UNSPECIFIED 01/17/2018 LORENA MOLINA FACC, ALI [facility] CCDS Ot Z79.01 HANDY WORKER (CURRENT) USE OF ANTICOAGULANT 01/17/2018 LORENA MOLINA FACC, ALI FACP CCDS Ot Z79.899 OTHER ASSISTED (CURRENT) DRUG THERAPY 01/17/2018 LORENA MOLINA FACC, KLARISSA [facility] CCDS Ot Z87.891 PERSONAL HISTORY OF NICOTINE DEPENDENCE Procedures There is no data. Results Test Result Range Automated blood complete blood count (hemogram) panel - 01/08/18 09:06 Blood leukocytes automated count (number/volume) 6.0 10*3/uL 4.3-11.0 Blood erythrocytes automated count (number/volume) 5.28 10*6/uL 4.35-5.85 Venous blood hemoglobin measurement (mass/volume) 14.9 g/dL 13.3-17.7 Blood hematocrit (volume fraction) 43 % 40-54 Automated erythrocyte mean corpuscular volume 82 [foz_us] 80-99 Automated erythrocyte mean corpuscular hemoglobin (mass per erythrocyte) 28 pg 25-34 Automated erythrocyte mean corpuscular hemoglobin concentration measurement ( mass/volume) 34 g/dL 32-36 Automated erythrocyte distribution width ratio 14.8 % 10.0-14.5 Automated blood platelet count (count/volume) 186 10*3/uL 130-400 Automated blood platelet mean volume measurement 10.7 [foz_us] 7.4-10.4 PT panel in platelet poor plasma by coagulation assay - 01/08/18 09:06 Prothrombin time (PT) in platelet poor plasma by coagulation assay 14.2 s 12.2-14.7 INR in platelet poor plasma or blood by coagulation assay 1.1 0.8-1.4 Activated partial thromboplastin time (aPTT) in platelet poor plasma bycoagulation assay - 01/08/18 09:06 Activated partial thromboplastin time (aPTT) in platelet poor plasma bycoagulation assay 35 s 24-35 Comprehensive metabolic panel - 01/08/18 09:06 Serum or plasma sodium measurement (moles/volume) 141 mmol/L 135-145 Serum or plasma potassium measurement (moles/volume) 4.1 mmol/L 3.6-5.0 Serum or plasma chloride measurement (moles/volume) 110 mmol/L 98-107 Carbon dioxide 22 mmol/L 21-32 Serum or plasma anion gap determination (moles/volume) 9 mmol/L 5-14 Serum or plasma urea nitrogen measurement (mass/volume) 13 mg/dL 7-18 Serum or plasma creatinine measurement (mass/volume) 0.89 mg/dL 0.60-1.30 Serum or plasma urea nitrogen/creatinine mass ratio 15 NRG Serum or plasma creatinine measurement with calculation of estimated glomerular filtration rate > NRG Serum or plasma glucose measurement (mass/volume) 102 mg/dL 70-105 Serum or plasma calcium measurement (mass/volume) 9.6 mg/dL 8.5-10.1 Serum or plasma total bilirubin measurement (mass/volume) 0.6 mg/dL 0.1-1.0 Serum or plasma alkaline phosphatase measurement (enzymatic activity/volume) 88 U/L 40-136 Serum or plasma aspartate aminotransferase measurement (enzymatic activity/ volume) 30 U/L 5-34 Serum or plasma alanine aminotransferase measurement (enzymatic activity/volume ) 45 U/L 0-55 Serum or plasma protein measurement (mass/volume) 7.1 g/dL 6.4-8.2 Serum or plasma albumin measurement (mass/volume) 4.5 g/dL 3.2-4.5 Lipid 1996 panel - 01/08/18 09:06 Serum or plasma triglyceride measurement (mass/volume) 68 mg/dL <150 Serum or plasma cholesterol measurement (mass/volume) 132 mg/dL < 200 Serum or plasma cholesterol in HDL measurement (mass/volume) 44 mg/ dL 40-60 Cholesterol in LDL [mass/volume] in serum or plasma by direct assay 75 mg/dL 1-129 Serum or plasma cholesterol in VLDL measurement (mass/volume) 14 mg/ dL 5-40 Methicillin resistant Staphylococcus aureus (MRSA) screening culture - 09:06 Methicillin resistant Staphylococcus aureus (MRSA) screening culture NEG NRG Encounters ACCT No. Visit Date/Time Discharge Status Pt. Type Provider Facility Loc./Unit Complaint [id number] 01/08/2018 11:00:00 01/08/2018 23:59:59 CLS Preadmit LORENA MOLINA FACC, KLARISSA MEDINA CCDS [facility] CATH STABLE ANGINA, HTN,NEIL [id number] 01/08/2018 08:00:00 01/08/2018 14:35:00 DIS Outpatient KLARISSA CARRILLO MD, FACC, FACP CCDS [facility] CATH HEART CATH [id number] 12/14/2017 06:59:00 12/14/2017 23:59:59 CLS Outpatient CLAIR PRASAD [facility] CARD OTHER CHEST PAIN,PAF ,HTN [id number] 03/24/2015 13:22:00 03/26/2015 12:35:00 DIS Inpatient KLARISSA CARRILLO MD, FACC, FACP CCDS [facility] CSD INITIATION OF TIKOSYN AFIB [id number] 02/25/2015 10:24:00 02/25/2015 23:59:59 CLS Outpatient CLAIR PRASAD [facility] CARD AFIB [id number] 02/13/2015 19:55:00 02/14/2015 06:15:00 DIS Outpatient CRISTINA MATA DO [facility] SLEEP NEIL [id number] 10/07/2014 11:48:00 10/07/2014 23:59:59 CLS Outpatient VANE QUIROZ DO [facility] RAD COUGH PHELGM PAIN TO RIGHT LOWER CHEST [id number] 03/04/2012 10:01:00 Document Registration [id number] 03/01/2012 08:19:00 Document Registration [id number] 05/26/2011 08:26:00 Document Registration [id number] 10/16/2010 17:30:00 Document Registration [id number] 11/09/2009 05:36:00 Document Registration
== END 2018-01-08 14:35 | disposition home or self-care (01) ==
LOC: CATH 08:00 → SURG 11:20 → CATH 11:30 → SURG 11:30 → CATH 14:35 → EDSTATUS 15:39
PROVIDERS: ATTEND Internal Medicine Cardiovascular Disease
DX: R07.89 Other chest pain (principal); I48.0 Paroxysmal atrial fibrillation; I10 Essential (primary) hypertension; E78.5 Hyperlipidemia, unspecified; R73.9 Hyperglycemia, unspecified; E03.9 Hypothyroidism, unspecified; G47.33 Obstructive sleep apnea (adult) (pediatric); L40.50 Arthropathic psoriasis, unspecified; Z79.01 Long term (current) use of anticoagulants; Z79.899 Other long term (current) drug therapy; Z87.891 Personal history of nicotine dependence
CPT/HCPCS: 36415; 80053; 80061; 85027; 85610; 85730; 87081; 93005; 93458